=== PATIENT | female | born 1985 | race Caucasian/White ===

== ENCOUNTER → 2016-04-19 | Outpatient (REF) | payer OTHER | LOC: M SFHCLERA 11:25 | PROVIDERS: ATTEND Family Medicine | DX: R87.615 Unsatisfactory cytologic smear of cervix (principal) | CPT/HCPCS: G0123; G0463 ==

== ENCOUNTER → 2017-04-17 | Outpatient (REF) | payer OTHER ==
[2017-04-22 00:06] LABS: HPV HYBRID CAPTURE II Negative (Negative)
== END ==
LOC: M SFHCLERA 11:35
DX: Z12.4 Encounter for screening for malignant neoplasm of cervix (principal); R87.610 Atypical squamous cells of undetermined significance on cytologic smear of cervix (ASC-US)
CPT/HCPCS: G0123

== ENCOUNTER → 2017-10-30 | Outpatient (REF) | payer OTHER | LOC: M SFHCLERA 09:33 | DX: Z12.4 Encounter for screening for malignant neoplasm of cervix (principal) ==